=== PATIENT | female | born 1940 | race Caucasian/White ===

== ENCOUNTER 2017-01-19 02:39 | Inpatient (IN) | payer OTHER ==
[~2017-01-19] VITALS: Ht 154.9 cm; Wt 65.8 kg
[2017-01-19] VITALS (12 sets, daily range): BP systolic 102–160; BP diastolic 51–92
[2017-01-19 03:37] LABS: HEMATOCRIT 38.6 % (36.0-46.0); MCH 30.4 PG (29.0-34.0); MCHC 33.2 G/DL (30.0-36.0); MCV 91.7 FL (83-99); MEAN PLAT.VOLUME 10.8 uM^3 (9.5-12.4); PLATELET COUNT 211 K/uL (156-360); RBC DIS.WIDTH-CV 13.2 % (11.8-14.6); RBC DIS.WIDTH-SD 44.7 % (39-53); RED BLOOD COUNT 4.21 M/uL (3.80-5.20); WHITE BLOOD COUNT 8.2 K/uL (4.1-10.2)
[2017-01-19 03:44] LABS: INTER. NORMALIZED RATIO 1.3; PROTHROMBIN TIME 14.8 SEC (10.2-12.9)
[2017-01-19 03:47] LABS: PTT 25.6 SEC (25-37)
[2017-01-19 03:51] LABS: CHLORIDE 108 mEq/L (99-109); POTASSIUM 4.2 mEq/L (3.7-5.4); SODIUM 139 mEq/L (136-147)
[2017-01-19 03:53] LABS: GLUCOSE 129 mg/dL (70-99)
[2017-01-19 03:54] LABS: ANION GAP 9 MEQ/L (2-14)
[2017-01-19 03:58] LABS: GFR ESTIMATE (CALCULATED) 36 mL/min/; UREA NITROGEN (BUN) 20 mg/dL (9-23)
[2017-01-19 04:06] LABS: TROP-I INTERPRETATION INDETERMINATE; TROPONIN-I 0.54 ng/mL (0.0-0.30)
[2017-01-19] MEDS ORDERED: IMDUR30 MG PO (11:07)
[2017-01-19] MEDS ORDERED: BUSPAR15 MG PO ×2 (11:07→11:08)
[2017-01-19] MEDS ORDERED: PLAVIX75 MG PO (11:08)
[2017-01-19] MEDS ORDERED: CRESTOR40 MG PO (11:08)
[2017-01-19] MEDS ORDERED: PROZAC20 MG PO (11:08)
[2017-01-19] MEDS ORDERED: PRINIVIL20 MG PO (11:09)
[2017-01-19] MEDS ORDERED: TOPROL XL25 MG PO (11:09)
[2017-01-19] MEDS ORDERED: WELLBUTRIN XL150 MG PO (11:09)
[2017-01-19] MEDS ORDERED: COLACE100 MG PO (11:10)
[2017-01-19] MEDS ORDERED: LO-DOSE ASPIRIN81 M2 PO (11:10)
[2017-01-19] MEDS ORDERED: PYRIDIUM200 MG PO (11:10)
[2017-01-19] MEDS ORDERED: CYANOCOBALAM1000 MCG PO (11:12)
[2017-01-19] MEDS ORDERED: VITAMIN D31000 UNI2 PO (11:12)
[2017-01-19 12:09] LABS: TROP-I INTERPRETATION POSITIVE
[2017-01-19 12:10] LABS: TROPONIN-I 1.15 ng/mL (0.0-0.30)
[2017-01-19 12:11] LABS: HDL CHOLESTEROL 63 MG/DL (Desirable>=50); LDL CHOLESTEROL 56 mg/dL (Desirable<100); NON-HDL CHOLESTEROL 63 mg/dL (Desirable<160); TOTAL CHOLESTEROL 126 mg/dL (Desirable<200); TRIGLYCERIDES 37 MG/DL (Normal: <150)
[2017-01-19 17:56] LABS: METH RESISTANT S AUREUS PCR NEGATIVE (NEGATIVE)
[2017-01-19 17:59] LABS: PROBE CHECK PASS; SPECIMEN PROCESSING CONTROL PASS
[2017-01-19 18:34] LABS: TROP-I INTERPRETATION POSITIVE; TROPONIN-I 0.86 ng/mL (0.0-0.30)
[2017-01-20 04:59] VITALS: BP 94/52
[2017-01-20 05:57] LABS: MCH 29.4 PG (29.0-34.0); MCHC 31.8 G/DL (30.0-36.0); MCV 92.4 FL (83-99); PLATELET COUNT 226 K/uL (156-360); RBC DIS.WIDTH-CV 13.6 % (11.8-14.6); RBC DIS.WIDTH-SD 46.4 % (39-53); RED BLOOD COUNT 4.22 M/uL (3.80-5.20); WHITE BLOOD COUNT 7.7 K/uL (4.1-10.2)
[2017-01-20 06:21] LABS: ANION GAP 9 MEQ/L (2-14); CHLORIDE 107 MEQ/L (99-109); GFR ESTIMATE (CALCULATED) 47 mL/min/; POTASSIUM 4.8 MEQ/L (3.7-5.4); SAMPLE HEMOLYSIS CHECK 0; SAMPLE ICTERIC CHECK 0; SAMPLE LIPEMIA CHECK 0; SODIUM 140 MEQ/L (136-147); UREA NITROGEN (BUN) 17 mg/dL (9-23)
[2017-01-20 06:24] LABS: GLUCOSE 92 mg/dL (70-99)
[2017-01-20 09:38] VITALS: BP 135/69
[2017-01-20 12:33] VITALS: BP 143/79
[2017-01-20] MEDS ORDERED: ASPIR-LOW81 MG PO (13:49)
[2017-01-20] MEDS ORDERED: LOPRESSOR25 MG PO (13:49)
[2017-01-20] MEDS ORDERED: LISINOPRIL10 MG PO (13:49)
[2017-01-20 17:36] VITALS: BP 111/57
== END 2017-01-20 20:23 | disposition home or self-care (01) | DRG 287 ==
LOC: EME 02:39 → EDOF 06:12 → ENRESERV 06:15 → 4EAST 13:50 → 4WEST 16:33 → 4EAST 22:05 → ENRESERV 22:07 → 4WEST 22:09 → ENRESERV 22:17 → 4EAST 23:02
PROVIDERS: Hospitalist; Internal Medicine; Physician Assistant
DX: I24.9 Acute ischemic heart disease, unspecified (principal); I51.81 Takotsubo syndrome; I25.119 Atherosclerotic heart disease of native coronary artery with unspecified angina pectoris; I44.7 Left bundle-branch block, unspecified; I10 Essential (primary) hypertension; I25.2 Old myocardial infarction; E78.5 Hyperlipidemia, unspecified; N28.9 Disorder of kidney and ureter, unspecified; F32.9 Major depressive disorder, single episode, unspecified; F41.9 Anxiety disorder, unspecified; Z87.891 Personal history of nicotine dependence; Z95.5 Presence of coronary angioplasty implant and graft; Z86.79 Personal history of other diseases of the circulatory system; Z98.890 Other specified postprocedural states; Z79.82 Long term (current) use of aspirin; Z79.02 Long term (current) use of antithrombotics/antiplatelets
CPT/HCPCS: 71020; 80048; 80061; 84484; 85027; 85347; 85610; 85730; 87641; 93005; 99281; 99285; C1760; C1769; C1887; C1894; J1644; J2250; J2270; J3010; J7040